=== PATIENT | female | born 1995 | race Caucasian/White ===

== ENCOUNTER 2017-01-12 10:28 | Emergency (ER) | payer OTHER ==
[2017-01-12 10:41] VITALS: BP 118/76
--- NOTE | 2017-01-12 11:15 | ED ---
Ferdinand De Los Santos Nilda, scribed for Yonas Peres MD on 01/12/17 at 1106 . Skin Complaint - HPI Summary HPI Summary: This patient is a 21 year old F presenting to [facility] with a chief complaint of a painful, erythematous, swollen abscess on left upper thigh that began this morning. She states it was not present yesterday. The patient rates the pain 9/ 10 in severity. Symptoms aggravated by palpation and ambulation and alleviated by rest. Patient reports she is otherwise healthy. She states she had a similar episode before (lanced). - History of Current Complaint Chief Complaint: EDRashSkinAbscess Stated Complaint: ABBCESS ON LEG LEG Hx Obtained From: Patient Hx Last Menstrual Period: 01/11/14 Onset/Duration: Started Hours Ago, Still Present Timing: Constant Current Severity: Severe Pain Intensity: 9 Pain Scale Used: 0-10 Numeric Skin Location: Leg - upper left thigh Character: Swelling, Redness, Painful Aggravating Symptom(s): Touch, Other: - ambulation Alleviating Symptom(s): Other: - rest - Allergy/Home Medications Allergies/Adverse Reactions: Allergies Allergy/AdvReac Type Severity Reaction Status Date / Time Clindamycin Allergy Intermediate Hives Verified 08/29/15 17:14 Penicillins Allergy Intermediate Hives Verified 08/29/15 17:14 Cephalexin [From Keflex] Allergy Shortness Verified 08/29/15 17:14 of Breath PMH/Surg Hx/FS Hx/Imm Hx Endocrine/Hematology History: Denies: Hx Diabetes Cardiovascular History: Denies: Hx Congestive Heart Failure, Hx Hypertension Respiratory History: Reports: Hx Asthma History: Denies: Hx Renal Disease Psychiatric History: Reports: Hx Depression Denies: Hx Eating Disorder, Hx of Violent Episodes Against Others Infectious Disease History: No Infectious Disease History: Denies: History Other Infectious Disease, Traveled Outside the [place] in Last 30 Days - Family History Known Family History: Positive: Hypertension - Social History Alcohol Use: None Substance Use Type: Reports: None Smoking Status (MU): Light Every Day Tobacco Smoker Type: Cigarettes Amount Used/How Often: 1 Have You Smoked in the Last Year: Yes Review of Systems Negative: Shortness Of Breath Positive: Other - painful, erythematous, swollen abscess on left upper thigh All Other Systems Reviewed And Are Negative: Yes Physical Exam Triage Information Reviewed: Yes Vital Signs On Initial Exam: Initial Vitals Temp Pulse Resp BP Pulse Ox 97.4 F 90 16 118/76 98 01/12/17 10:37 01/12/17 10:37 01/12/17 10:37 01/12/17 10:37 01/12/17 10:37 Vital Signs Reviewed: Yes Appearance: Positive: Obese Skin: Positive: Warm, Other - inner upper slightly posterior left thigh is with an early abscess, consistent with the one day symptoms according to the patient. There is 1 cm of induration, slight redness 2 cm in diameter, and no fluctuance. Head/Face: Positive: Normal Head/Face Inspection Eyes: Positive: EOMI ENT: Positive: Normal ENT inspection Respiratory/Lung Sounds: Positive: Clear to Auscultation, Breath Sounds Present Cardiovascular: Positive: RRR Abdomen Description: Negative: Distended Musculoskeletal: Positive: Strength/ROM Intact Neurological: Positive: Sensory/Motor Intact, Alert, Oriented to Person Place, Time, CN Intact II-III Diagnostics - Vital Signs Vital Signs Temp Pulse Resp BP Pulse Ox 01/12/17 10:37 97.4 F 90 16 118/76 98 - Laboratory Lab Statement: Any lab studies that have been ordered have been reviewed, and results considered in the medical decision making process. Course/Dx - Course Assessment/Plan: This patient is a 21 year old F presenting to [facility] with a chief complaint of a painful, erythematous, swollen abscess on left upper thigh that began this morning. She states it was not present yesterday. The patient rates the pain 9/10 in severity. Symptoms aggravated by palpation and ambulation and alleviated by rest. Patient reports she is otherwise healthy. She states she had a similar episode before (lanced). Pt is stable and will be D /C w prescription for Bactrim and Dx of early abscess. - Diagnoses Provider Diagnoses: Abscess Discharge - Discharge Plan Condition: Good Disposition: HOME Prescriptions: Sulfamethox/Trimethoprim DS* [Bactrim DS 800/160 TAB*] 1 tab PO BID #20 tab Patient Education Materials: Furunculosis and Carbunculosis (ED) Referrals: [facility] [facility] [Outside] No Primary Care Phys,NOPCP [Primary Care Provider] - Additional Instructions: RETURN TO THE EMERGENCY DEPARTMENT FOR CHANGING OR WORSENING SYMPTOMS The documentation as recorded by the Ferdinand piña Nilda accurately reflects the service I personally performed and the decisions made by , Yonas Peres MD.
== END 2017-01-12 11:16 | disposition home or self-care (01) ==
LOC: ED 10:28
DX: L02.416 Cutaneous abscess of left lower limb (principal)
CPT/HCPCS: 99281

== ENCOUNTER 2017-03-24 15:52 | Emergency (ER) | payer OTHER ==
--- NOTE | 2017-03-24 17:56 | RAD ---
Indication: Left ankle pain. 3 views left ankle demonstrate soft tissue swelling laterally. Ankle mortise is intact. No fracture is noted. IMPRESSION: Soft tissue swelling with no fracture.
--- NOTE | 2017-03-24 18:29 | ED ---
Lower Extremity - HPI Summary HPI Summary: The patient is a 21-year-old otherwise healthy female who presents to the ED with chief complaint of left ankle pain. She twisted it while at work. She denies any pain in the foot or the knee on the ipsilateral side. Denies numbness, tingling, color or temperature changes. There is slight swelling on the dorsum of the left foot. Pain is discretely located over the deltoid and lateral ligaments. She denies falling, hitting her head or loss of consciousness. Denies any other symptoms at this time. She is requesting a note for work. She is not iced the ankle but has taken 600 mg ibuprofen without relief of pain. Pain is rated 10, throbbing, worse with ambulation, better with rest. - History of Current Complaint Chief Complaint: EDExtremityLower Stated Complaint: LT FOOT PAIN Time Seen by Provider: 03/24/17 17:27 Hx Obtained From: Patient Hx Last Menstrual Period: 01/11/14 Onset of Pain: Minutes Onset/Duration: Minutes Severity Initially: Mild Severity Currently: Mild Pain Intensity: 6 Pain Scale Used: 0-10 Numeric Timing: Constant Location: Is Discrete @ - left lateral ankle Associated Signs And Symptoms: Positive: Swelling. Negative: Redness, Bruising , Weakness, Dizziness, Syncope Aggravating Factor(s): Standing, Ambulation Alleviating Factor(s): Rest Able to Bear Weight: No - Risk Factors Gout Risk Factors: Negative DVT Risk Factors: Negative Septic Arthritis Risk Factor: Negative - Allergies/Home Medications Allergies/Adverse Reactions: Allergies Allergy/AdvReac Type Severity Reaction Status Date / Time Clindamycin Allergy Intermediate Hives Verified 08/29/15 17:14 Penicillins Allergy Intermediate Hives Verified 08/29/15 17:14 Cephalexin [From Keflex] Allergy Shortness Verified 08/29/15 17:14 of Breath PMH/Surg Hx/FS Hx/Imm Hx Previously Healthy: Yes Endocrine/Hematology History: Denies: Hx Diabetes Cardiovascular History: Denies: Hx Congestive Heart Failure, Hx Hypertension Respiratory History: Reports: Hx Asthma History: Denies: Hx Renal Disease Psychiatric History: Reports: Hx Depression Denies: Hx Eating Disorder, Hx of Violent Episodes Against Others - Immunization History Hx Pertussis Vaccination: No Immunizations Up to Date: Yes Infectious Disease History: No Infectious Disease History: Denies: History Other Infectious Disease, Traveled Outside the [place] in Last 30 Days - Family History Known Family History: Positive: Unknown, Hypertension - Social History Occupation: Employed Part-time Lives: With Family Alcohol Use: None Substance Use Type: Reports: None Smoking Status (MU): Never Smoked Tobacco Type: Cigarettes Amount Used/How Often: 1 Have You Smoked in the Last Year: Yes Review of Systems Constitutional: Negative Negative: Fever, Chills, Fatigue Eyes: Negative ENT: Negative Respiratory: Negative Negative: Shortness Of Breath, Cough Negative: Abdominal Pain, Vomiting Positive: no symptoms reported, see HPI Positive: Arthralgia Skin: Negative All Other Systems Reviewed And Are Negative: Yes Physical Exam Triage Information Reviewed: Yes Vital Signs On Initial Exam: Initial Vitals Temp Pulse Resp BP Pulse Ox 97.8 F 81 16 124/72 99 03/24/17 16:06 03/24/17 16:06 03/24/17 16:06 03/24/17 16:06 03/24/17 16:06 Vital Signs Reviewed: Yes Appearance: Positive: Well-Appearing, Well-Nourished Skin: Positive: Warm, Skin Color Reflects Adequate Perfusion Head/Face: Positive: Normal Head/Face Inspection Eyes: Positive: EOMI, IZA, Conjunctiva Clear Neck: Positive: Supple, No Lymphadenopathy Respiratory/Lung Sounds: Positive: Clear to Auscultation, Breath Sounds Present Cardiovascular: Positive: RRR, Pulses are Symmetrical in both Upper and Lower Extremities Musculoskeletal: Positive: Pain @ - left lateral and deltoid ligament pain Neurological: Positive: Speech Normal Diagnostics - Vital Signs Vital Signs Temp Pulse Resp BP Pulse Ox 03/24/17 16:06 97.8 F 81 16 124/72 99 - Laboratory Lab Statement: Any lab studies that have been ordered have been reviewed, and results considered in the medical decision making process. Lower Extremity Course/Dx - Course Course Of Treatment: Based on Hiller Ankle Rules, patient sent to imaging. Xray negative for fracture or other acute findings. Medial and lateral distal lower extremity without pain and x-rays show no widening of the ankle joint regarding low suspicion for Maisonneuve fx. Ankle was wendy wrapped to patient comfort to allow for immobilization for this period of time. Crutches given. Patient given orthopedic follow up in 5-7 days. Encouraged Ibuprofen 600mg three times daily with meals for pain. Return precautions given. Educated patient regarding ankle injuries and healing time and the possibility of further evaluation and imaging as orthopedist sees fit. - Diagnoses Provider Diagnoses: Ankle sprain Discharge - Discharge Plan Condition: Stable Disposition: HOME Patient Education Materials: Ankle Sprain (ED) Forms: *Work Release Referrals: No Primary Care Phys,NOPCP [Primary Care Provider] - Additional Instructions: Rest Ibuprofen 600mg three times daily Ice Keep the area wrapped for 3 days
[2017-03-24 19:03] VITALS: BP 128/74
== END 2017-03-24 19:03 | disposition home or self-care (01) ==
LOC: ED 15:52
DX: S93.402A Sprain of unspecified ligament of left ankle, initial encounter (principal); X50.1XXA Overexertion from prolonged static or awkward postures, initial encounter; Y92.9 Unspecified place or not applicable; J45.909 Unspecified asthma, uncomplicated; F32.9 Major depressive disorder, single episode, unspecified
CPT/HCPCS: 99282

== ENCOUNTER 2017-04-05 15:19 | Emergency (ER) | payer OTHER ==
[2017-04-05 15:31] VITALS: BP 120/80
== END 2017-04-05 16:25 | disposition left against medical advice (07) ==
LOC: ED 15:19
DX: J11.1 Influenza due to unidentified influenza virus with other respiratory manifestations (principal); Z53.21 Procedure and treatment not carried out due to patient leaving prior to being seen by health care provider
CPT/HCPCS: 99281

== ENCOUNTER 2017-07-26 22:00 | Emergency (ER) | payer OTHER ==
[2017-07-26] MEDS ORDERED: oxyCODONE/Acetamin 5/325 MG* TAB PO ONE (23:45)
--- NOTE | 2017-07-26 23:52 | ED ---
Throat Pain/Nasal Congestion - HPI Summary HPI Summary: Pt here w/ gingival swelling, redness and pain along Lt upper jaw. She has had pain in multiple areas but this has been worse most recently. HAs had doxycycline in the past for her oral infections which she believes worked well. Denies fever, chills, difficulty breathing or swallowing. Pain worse w/ cool/ hot temps. Has dentist - [facility]. - History of Current Complaint Chief Complaint: EDDentalPain Time Seen by Provider: 07/26/17 23:28 Hx Obtained From: Patient - Allergies/Home Medications Allergies/Adverse Reactions: Allergies Allergy/AdvReac Type Severity Reaction Status Date / Time MS Clindamycin [Clindamycin] Allergy Intermediate Hives Verified 08/29/15 17:14 MS Penicillins [Penicillins] Allergy Intermediate Hives Verified 08/29/15 17:14 MS Cephalexin [From Keflex] Allergy Shortness Verified 08/29/15 17:14 of Breath PMH/Surg Hx/FS Hx/Imm Hx Endocrine/Hematology History: Denies: Hx Diabetes Cardiovascular History: Denies: Hx Congestive Heart Failure, Hx Hypertension Respiratory History: Reports: Hx Asthma History: Denies: Hx Renal Disease Psychiatric History: Reports: Hx Depression Denies: Hx Eating Disorder, Hx of Violent Episodes Against Others Infectious Disease History: No Infectious Disease History: Denies: History Other Infectious Disease, Traveled Outside the [place] in Last 30 Days - Family History Known Family History: Positive: Unknown, Hypertension - Social History Alcohol Use: None Substance Use Type: Reports: None Smoking Status (MU): Never Smoked Tobacco Type: Cigarettes Amount Used/How Often: 1 Have You Smoked in the Last Year: Yes Physical Exam Vital Signs On Initial Exam: Initial Vitals Temp Pulse Resp BP Pulse Ox 97.5 F 58 18 148/103 98 07/26/17 22:09 07/26/17 22:09 07/26/17 22:09 07/26/17 22:09 07/26/17 22:09 Diagnostics - Vital Signs Vital Signs Temp Pulse Resp BP Pulse Ox 07/26/17 22:09 97.5 F 58 18 148/103 98 - Laboratory Lab Statement: Any lab studies that have been ordered have been reviewed, and results considered in the medical decision making process. Discharge - Sign-Out/Discharge Documenting (check all that apply): Discharge/Admit/Transfer - Discharge Plan Condition: Stable Disposition: HOME Prescriptions: Acetaminop/Codeine 30 MG TAB* [Tylenol/Codeine 30 MG TAB*] 1 tab PO Q6H PRN #4 tab MDD 4 PRN Reason: Pain Chlorhexidine MOUTHWASH 0.12%* [Peridex Mouth Wash 0.12%*] 15 ml MT BID #1 btl DOXYcycline CAP(*) [DOXYcycline 100MG CAP(*)] 100 mg PO BID #20 cap Patient Education Materials: Adarsh Christo (ED) Forms: *Work Release Referrals: No Primary Care Phys,NOPCP [Primary Care Provider] - Additional Instructions: Continue ibuprofen 600mg every 6 hours with food for pain and inflammation Start salt water rinses along with antibiotic oral mouthrinse and pills - followup with dentist at [facility] - call tomorrow to schedule an appointment If pain is keeping you from sleeping, you may try topical oragel for pain as well as tylenol #3 *If you develop facial swelling, difficulty breathing or swallowing return to ED - Billing Disposition and Condition Condition: STABLE Disposition: HOME
[2017-07-26] MEDS ORDERED: Ketorolac INJ* 60 MG/2 ML VIAL IM ONE (23:53)
[2017-07-27 00:57] VITALS: BP 151/99
== END 2017-07-27 00:52 | disposition home or self-care (01) ==
LOC: ED 22:00
DX: R68.84 Jaw pain (principal); K06.1 Gingival enlargement; J45.909 Unspecified asthma, uncomplicated; F32.9 Major depressive disorder, single episode, unspecified; Z88.1 Allergy status to other antibiotic agents; Z88.0 Allergy status to penicillin
CPT/HCPCS: 96372; 99282; A9270-GY; J1885

== ENCOUNTER 2017-11-27 12:25 | Emergency (ER) | payer OTHER ==
--- NOTE | 2017-11-27 13:50 | ED ---
Throat Pain/Nasal Congestion - HPI Summary HPI Summary: Patient is a 22-year-old otherwise healthy female presenting to the ED with painful eye with conjunctival injection. She denies any blurry vision or double vision. She states she was at a wedding yesterday and was possibly around sick contacts. She denies any other symptoms at this time. She states she has had a viral cold recently, but this has improved. She has not taken any medications. She states she awoke with this pain and erythema this morning. - History of Current Complaint Chief Complaint: EDEyeProblem Time Seen by Provider: 11/27/17 12:40 Hx Obtained From: Patient Onset/Duration: Sudden Onset Severity: Moderate Associated Signs And Symptoms: Positive: Negative - Epiglottits Risk Factors Epiglottis Risk Factors: Negative - Allergies/Home Medications Allergies/Adverse Reactions: Allergies Allergy/AdvReac Type Severity Reaction Status Date / Time cephalexin Allergy Shortness Verified 11/27/17 12:30 of Breath clindamycin Allergy Hives Verified 11/27/17 12:30 Penicillins Allergy Hives Verified 11/27/17 12:30 Home Medications: Home Medications NK [No Home Medications Reported] 11/27/17 [History Confirmed 11/27/17] PMH/Surg Hx/FS Hx/Imm Hx Previously Healthy: Yes Endocrine/Hematology History: Denies: Hx Diabetes Cardiovascular History: Denies: Hx Congestive Heart Failure, Hx Hypertension Respiratory History: Reports: Hx Asthma History: Denies: Hx Renal Disease Psychiatric History: Reports: Hx Depression Denies: Hx Eating Disorder, Hx of Violent Episodes Against Others - Immunization History Hx Pertussis Vaccination: No Immunizations Up to Date: Yes Infectious Disease History: No Infectious Disease History: Denies: History Other Infectious Disease, Traveled Outside the [place] in Last 30 Days - Family History Known Family History: Positive: Unknown, Hypertension - Social History Occupation: Employed Full-time Lives: With Family Alcohol Use: None Hx Substance Use: No Substance Use Type: Reports: None Hx Tobacco Use: Yes Smoking Status (MU): Heavy Every Day Tobacco Smoker Type: Cigarettes Amount Used/How Often: 1 Have You Smoked in the Last Year: Yes Review of Systems Constitutional: Negative Negative: Fever, Chills, Fatigue, Skin Diaphoresis Positive: Drainage, Erythema. Negative: Photophobia, Blurred Vision, Diplopia Negative: Palpitations, Chest Pain Negative: Shortness Of Breath, Cough Negative: Arthralgia, Myalgia Skin: Negative Neurological: Negative All Other Systems Reviewed And Are Negative: Yes Physical Exam Triage Information Reviewed: Yes Vital Signs On Initial Exam: Initial Vitals Temp Pulse Resp BP Pulse Ox 97.3 F 92 16 136/89 97 11/27/17 12:27 11/27/17 12:27 11/27/17 12:27 11/27/17 12:27 11/27/17 12:27 Vital Signs Reviewed: Yes Appearance: Positive: Well-Appearing, Well-Nourished Skin: Positive: Warm, Skin Color Reflects Adequate Perfusion Head/Face: Positive: Normal Head/Face Inspection Eyes: Positive: EOMI, IZA, Conjunctiva Inflammed ENT: Positive: Pharynx normal Neck: Positive: Nontender, No Lymphadenopathy Cardiovascular: Positive: RRR, Pulses are Symmetrical in both Upper and Lower Extremities Musculoskeletal: Positive: Normal, Strength/ROM Intact Neurological: Positive: Speech Normal Psychiatric: Positive: Normal, Affect/Mood Appropriate Diagnostics - Vital Signs Vital Signs Temp Pulse Resp BP Pulse Ox 11/27/17 12:27 97.3 F 92 16 136/89 97 - Laboratory Lab Statement: Any lab studies that have been ordered have been reviewed, and results considered in the medical decision making process. EENT Course/Dx - Course Course Of Treatment: During the course treatment, the patient is evaluated for conjunctival injection of the right eye with pain and slight itchiness. She has never had this before. She denies any environmental allergies. She has had a recent viral illness which is since resolved. Endorses crusting around the eyelids since this a.m. Physical examination, there is conjunctival injection with slight crusting around the eyelids. Denies any visual changes, double vision or blurry vision. She is given polymyxin drops in the ED and is encouraged to use these every 3 hours while awake 5 days. - Differential Diagnoses Differential Diagnoses: Conjunctivitis, Corneal Abrasion - Diagnoses Provider Diagnoses: Bacterial conjunctivitis of right eye Discharge - Sign-Out/Discharge Documenting (check all that apply): Patient Departure - Discharge Plan Condition: Stable Disposition: HOME Patient Education Materials: Conjunctivitis (ED) Forms: *Work Release Referrals: No Primary Care Phys,NOPCP [Primary Care Provider] - Additional Instructions: Polymyxin drops every 3 hours while awake 5 days Wash hands frequently If he develop crusting over the eyelids, warm compresses R best, otherwise cold compresses - Billing Disposition and Condition Condition: STABLE Disposition: Home
[2017-11-27] MEDS ORDERED: Polymyx/Trimethoprim OPTH* 10 ML BTL RIGHT EYE SCH (14:00)
[2017-11-27 14:14] VITALS: BP 114/68
== END 2017-11-27 14:13 | disposition home or self-care (01) ==
LOC: ED 12:25
DX: H10.9 Unspecified conjunctivitis (principal)
CPT/HCPCS: 99282

== ENCOUNTER 2018-06-05 09:28 | Emergency (ER) | payer SELFPAY ==
[2018-06-05 09:36] VITALS: BP 132/69
--- NOTE | 2018-06-05 09:40 | ED ---
- HPI Summary HPI Summary: Patient is a 22-year-old female who presents emergency department for evaluation of possible and vaginal bleeding. Patient states she had implanon implant removed over the summer has not had a normal period since. Patient states she took 3 tests the last few weeks which were all positive. She states she noticed some vaginal bleeding yesterday that has continued to today. Patient states bleeding is light and is only with wiping. Patient denies other vaginal discharge or concerns for STIs. Patient has had 2 other pregnancies without complications and has 2 living children. Patient notes mild abdominal cramping. Symptoms are moderate in severity. No current modifying factors. - History of Current Complaint Chief Complaint: EDOBProblems Stated Complaint: CRAMPING, SPOTTING PER PT Time Seen by Provider: 06/05/18 09:38 Hx Obtained From: Patient Pain Intensity: 8 - Assessment SAB: 0 IEA: 0 - Additional Pertinent History Maternal Blood Type and Rh: O Positive - Allergies/Home Medications Allergies/Adverse Reactions: Allergies Allergy/AdvReac Type Severity Reaction Status Date / Time cephalexin Allergy Shortness Verified 06/05/18 09:36 of Breath clindamycin Allergy Hives Verified 06/05/18 09:36 Penicillins Allergy Hives Verified 06/05/18 09:36 PMH/Surg Hx/FS Hx/Imm Hx Previously Healthy: Yes Endocrine/Hematology History: Denies: Hx Diabetes Cardiovascular History: Denies: Hx Congestive Heart Failure, Hx Hypertension Respiratory History: Reports: Hx Asthma History: Denies: Hx Renal Disease Psychiatric History: Reports: Hx Depression Denies: Hx Eating Disorder, Hx of Violent Episodes Against Others Infectious Disease History: No Infectious Disease History: Denies: History Other Infectious Disease, Traveled Outside the [place] in Last 30 Days - Family History Known Family History: Positive: Unknown, Hypertension - Social History Occupation: Unemployed Lives: With Family Alcohol Use: None Hx Substance Use: No Substance Use Type: Reports: None Hx Tobacco Use: Yes Smoking Status (MU): Heavy Every Day Tobacco Smoker Type: Cigarettes Amount Used/How Often: 1 Have You Smoked in the Last Year: Yes Review of Systems Constitutional: Negative Negative: Fever, Chills Cardiovascular: Negative Respiratory: Negative Positive: Abdominal Pain, Nausea. Negative: Vomiting, Diarrhea Positive: other - vaginal spotting. Negative: discharge, frequency, flank pain , hematuria Neurological: Negative All Other Systems Reviewed And Are Negative: Yes Physical Exam - Physical Exam Triage Information Reviewed: Yes Vital Signs Reviewed: Yes Appearance: Positive: Well-Appearing - Pt. sitting up in bed in NAD. Mother present. Skin: Positive: Warm, Dry Head/Face: Positive: Normal Head/Face Inspection Eyes: Positive: Normal, EOMI Neck: Positive: Supple Respiratory/Lung Sounds: Positive: Clear to Auscultation, Breath Sounds Present Cardiovascular: Positive: Normal, RRR Abdomen Description: Positive: Other: - Obese. Abd. is soft and nontender throughout. Neurological: Positive: Normal, CN Intact II-III Psychiatric: Positive: Affect/Mood Appropriate Diagnostics - Vital Signs Vital Signs Temp Pulse Resp BP Pulse Ox 06/05/18 09:32 97.8 F 75 16 132/69 98 - Laboratory Result Diagrams: 06/05/18 09:59 Lab Statement: Any lab studies that have been ordered have been reviewed, and results considered in the medical decision making process. Course/Dx - Course Course Of Treatment: Pt. presenting with c/o pelvic cramping and vaginal spotting. Afebrile. Benign abd. exam. Pt. has not yet had u/s. Labs shows normal CBC. Beta quant elevated at 37,684. U/S ordered to evaluate for IUP. U/A negative. Blood type O+. 1220: U/S complete and waiting for radiology reading. Pt.'s nurse informed me pt. was given an u/s photo by [employer] and was walking down hallway to leave ER. Pt. 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 Nurse had pt. sign AMA form. I was unable to talk to pt. before she left to discuss with pt. risk of leaving ER before u/s result was officially read. Pelvic u/s per radiology: IMPRESSION : 1. Single live intrauterine gestation with a crown-rump length yielding a gestational age. of 6 weeks 1 day. 2. Trace subchorionic fluid that could be seen in a small subchorionic hemorrhage. - Differential Diagnosis/HQI/PQRI: Incomplete , Missed , Spontaneous , Ectopic , Early - Diagnoses Provider Diagnoses: First trimester , Threatened Discharge - Sign-Out/Discharge Documenting (check all that apply): Patient Departure Patient Received Moderate/Deep Sedation with Procedure: No - Discharge Plan Condition: Stable Disposition: AGAINST MEDICAL ADVICE Referrals: No Primary Care Phys,NOPCP [Primary Care Provider] - - Billing Disposition and Condition Condition: STABLE Disposition: Against Medical Advice
[2018-06-05 10:09] LABS: ABS Basophils 0.1 10^3/ul (0-0.2); ABS Eosinophils 0.1 10^3/ul (0-0.6); ABS Lymphocytes 1.7 10^3/ul (1.0-4.8); ABS Monocytes 0.7 10^3/ul (0-0.8); ABS Neutrophils 4.8 10^3/ul (1.5-7.7); ABS Nucleated RBC 0 10^3/ul; Eosinophil % 0.7 %; Hematocrit 40 % (33-41); Hemoglobin 13.5 g/dL (12.0-16.0); Lymphocyte % 23.4 %; Mean Corpuscular HGB Conc 34 g/dL (31-36); Mean Corpuscular Hemoglobin 29 pg (27-31); Mean Corpuscular Volume 85 fL (80-97); Mean Platelet Volume 9.6 fL (7.4-10.4); Nucleated Red Blood Cells % 0.1; Platelet Count 246 10^3/uL (150-450); Red Blood Count 4.68 10^6 /uL (3.70-4.87); Red Cell Distribution Width 14 % (10.5-15); White Blood Count 7.3 10^3/uL (3.5-10.8)
[2018-06-05 10:18] LABS: Urine Appearance Cloudy; Urine Bacteria Absent (Absent); Urine Bilirubin Negative (Negative); Urine Blood Negative (Negative); Urine Color Yellow; Urine Glucose Negative (Negative); Urine Ketones Negative (Negative); Urine Nitrite Negative (Negative); Urine Protein Negative (Negative); Urine Red Blood Cell Absent (Absent); Urine Specific Gravity 1.018 (1.010-1.030); Urine Squamous Epithelial Cell Present (Absent); Urine Urobilinogen Negative (Negative); Urine White Blood Cell 1+(6-10/hpf) (Absent)
== END 2018-06-05 12:22 | disposition left against medical advice (07) ==
LOC: ED 09:28
DX: O20.0 Threatened abortion (principal); O99.330 Smoking (tobacco) complicating pregnancy, unspecified trimester; Z3A.01 Less than 8 weeks gestation of pregnancy; J45.909 Unspecified asthma, uncomplicated; F32.9 Major depressive disorder, single episode, unspecified; F17.210 Nicotine dependence, cigarettes, uncomplicated; Z53.21 Procedure and treatment not carried out due to patient leaving prior to being seen by health care provider
CPT/HCPCS: 36415; 76817; 81003; 81015; 84702; 85025; 86900; 86901; 87086; 99282

== ENCOUNTER 2018-08-29 18:58 | Emergency (ER) | payer OTHER ==
--- NOTE | 2018-08-29 19:58 | ED ---
- HPI Summary HPI Summary: This patient is a 23 year old female presenting to [facility] with a chief complaint of injuries after a fall 3 hours ago. The patient fell on her abdomen from a standing position while walking. She is 18 weeks and states she has not felt the baby move since the fall. She complains of pain in her left big toe and abdominal cramping. She rates her pain 10/10 in severity. - History of Current Complaint Chief Complaint: EDFall Stated Complaint: 5 MONTHS PREG/FALL CRAMPING PER MOTHER Time Seen by Provider: 08/29/18 19:51 Hx Obtained From: Patient Chief Complaint: Concern for Demise Pain Intensity: 10 Character: Cramping - Assessment SAB: 0 IEA: 0 - Additional Pertinent History Maternal Blood Type and Rh: O Positive - Allergies/Home Medications Allergies/Adverse Reactions: Allergies Allergy/AdvReac Type Severity Reaction Status Date / Time cephalexin Allergy Shortness Verified 08/29/18 19:05 of Breath clindamycin Allergy Hives Verified 08/29/18 19:05 Penicillins Allergy Hives Verified 08/29/18 19:05 PMH/Surg Hx/FS Hx/Imm Hx Endocrine/Hematology History: Denies: Hx Diabetes Cardiovascular History: Denies: Hx Congestive Heart Failure, Hx Hypertension Respiratory History: Reports: Hx Asthma History: Denies: Hx Renal Disease Psychiatric History: Reports: Hx Depression Denies: Hx Eating Disorder, Hx of Violent Episodes Against Others - Immunization History Date of Tetanus Vaccine: utd Date of Influenza Vaccine: none Infectious Disease History: No Infectious Disease History: Denies: History Other Infectious Disease, Traveled Outside the [place] in Last 30 Days - Family History Known Family History: Positive: Hypertension - Social History Alcohol Use: None Hx Substance Use: No Substance Use Type: Reports: None Hx Tobacco Use: Yes Smoking Status (MU): Heavy Every Day Tobacco Smoker Type: Cigarettes Amount Used/How Often: 1 Have You Smoked in the Last Year: Yes Review of Systems Positive: Abdominal Pain Positive: Other - Toe pain All Other Systems Reviewed And Are Negative: Yes Physical Exam - Summary Physical Exam Summary: VITAL SIGNS: Reviewed. GENERAL: Patient is a well-developed and nourished FEMALE who is lying comfortable in the stretcher. Patient is not in any acute respiratory distress. HEAD AND FACE: No signs of trauma. No ecchymosis, hematomas or skull depressions. No sinus tenderness. EYES: PERRLA, EOMI x 2, No injected conjunctiva, no nystagmus. EARS: Hearing grossly intact. Ear canals and tympanic membranes are within normal limits. MOUTH: Oropharynx within normal limits. NECK: Supple, trachea is midline, no adenopathy, no JVD, no carotid bruit, no c- spine tenderness, neck with full ROM CHEST: Symmetric, no tenderness at palpation LUNGS: Clear to auscultation bilaterally. No wheezing or crackles. CVS: Regular rate and rhythm, S1 and S2 present, no murmurs or gallops appreciated. ABDOMEN: Soft, non-tender. No signs of distention. No rebound no guarding, and no masses palpated. Bowel sounds are normal. Could not feel uterus due to patient obesity. EXTREMITIES: FROM in all major joints, no edema, no cyanosis or clubbing. NEURO: Alert and oriented x 3. No acute neurological deficits. Speech is normal and follows commands. SKIN: Dry and warm - Physical Exam Triage Information Reviewed: Yes Vital Signs On Initial Exam: Temp Pulse Resp BP Pulse Ox 97.9 F 96 16 137/85 98 08/29/18 19:00 08/29/18 19:00 08/29/18 19:00 08/29/18 19:00 08/29/18 19:00 Vital Signs Reviewed: Yes Diagnostics - Vital Signs Vital Signs Temp Pulse Resp BP Pulse Ox 08/29/18 19:00 97.9 F 96 16 137/85 98 - Laboratory Result Diagrams: 08/29/18 20:04 08/29/18 20:04 Lab Statement: Any lab studies that have been ordered have been reviewed, and results considered in the medical decision making process. - Ultrasound No standard instances Ultrasound Interpretation Completed By: Radiologist Summary of Ultrasound Findings: US: Normal intrauterine with estimated gestational age of 19 weeks and 0 days. ED Provider has reviewed this report. Course/Dx - Course Course Of Treatment: This patient is a 23 year old female presenting to [facility] with a chief complaint of injuries after a fall 3 hours ago with concerns over her . US revealed normal intrauterine with estimated gestational age of 19 weeks and 0 days. A plan for discharge was discussed with the patient and she was agreeable with this plan. - Diagnoses Provider Diagnoses: Fall Discharge - Sign-Out/Discharge Documenting (check all that apply): Patient Departure - Discharge Patient Received Moderate/Deep Sedation with Procedure: No - Discharge Plan Condition: Stable Disposition: HOME Patient Education Materials: Fall Prevention (ED) Referrals: [facility] [Provider Group] Additional Instructions: Return to ED with any new or worsening symptoms. - Attestation Statements Document Initiated by Scribe: Yes Documenting Scribe: Eris Viveros Provider For Whom Scribe is Documenting (Include Credential): Perlita Jackson MD Scribe Attestation: IEris, scribed for Perlita Jackson MD on 08/29/18 at 2142. Status of Scribe Document: Ready
[2018-08-29 20:12] LABS: ABS Basophils 0.1 10^3/ul (0-0.2); ABS Lymphocytes 1.7 10^3/ul (1.0-4.8); ABS Monocytes 0.7 10^3/ul (0-0.8); Eosinophil % 0.2 %; Hematocrit 33 % (35-47); Hemoglobin 11.9 g/dL (12.0-16.0); Lymphocyte % 14.7 %; Mean Corpuscular HGB Conc 36 g/dL (31-36); Mean Corpuscular Hemoglobin 30 pg (27-31); Mean Corpuscular Volume 84 fL (80-97); Platelet Count 242 10^3/uL (150-450); Red Blood Count 3.99 10^6 /uL (3.70-4.87); Red Cell Distribution Width 13 % (10-15); White Blood Count 11.4 10^3/uL (3.5-10.8)
[2018-08-29 20:32] LABS: Albumin 3.6 g/dL (3.2-5.2); Albumin/Globulin Ratio 1.1 (1-3); BUN/Creatinine Ratio 12.7 (8-20); Calcium 9.5 mg/dL (8.6-10.3); EGFR African American 121.4 (>60); EGFR Non-African American 100.3 (>60); Globulin 3.3 g/dL (2-4); Potassium 3.4 mmol/L (3.5-5.0); Total Bilirubin 0.2 mg/dL (0.2-1.0); Total Protein 6.9 g/dL (6.4-8.9)
[2018-08-29] MEDS ORDERED: Potassium Chlor TAB* 20 MEQ TAB.ER PO ONE (20:47)
[2018-08-29] MEDS ORDERED: Acetaminophen TAB* 325 MG PO ONE (20:50)
[2018-08-29 22:43] VITALS: BP 137/78
== END 2018-08-29 22:42 | disposition home or self-care (01) ==
LOC: ED 18:58
DX: Z04.3 Encounter for examination and observation following other accident (principal); W18.30XA Fall on same level, unspecified, initial encounter; O99.332 Smoking (tobacco) complicating pregnancy, second trimester; F17.210 Nicotine dependence, cigarettes, uncomplicated; Z3A.19 19 weeks gestation of pregnancy; Z88.1 Allergy status to other antibiotic agents; Z88.0 Allergy status to penicillin
CPT/HCPCS: 36415; 76815; 80053; 84702; 85025; 86850; 86900; 86901; 99282; A9270-GY

== ENCOUNTER 2019-02-02 14:43 | Inpatient (IN) | payer OTHER ==
[2019-02-02] MEDS ORDERED: Lactated Ringers 1000 ML Bag* 1,000 ML IV ONE (16:15)
[2019-02-02] MEDS ORDERED: Buffered Lidocaine 1% SYRIN* 1 ML/SYRINGE INTRADERM ONE (16:15)
[2019-02-02] MEDS ORDERED: Lactated Ringers 1000 ML Bag* 1,000 ML IV SCH (17:00)
[2019-02-02] MEDS ORDERED: Oxytocin in LR* 20 UNITS/1,000 ML BAG IVPB SCH (17:00)
[2019-02-02 17:09] LABS: ABS Eosinophils 0.1 10^3/ul (0-0.6); ABS Lymphocytes 1.7 10^3/ul (1.0-4.8); ABS Monocytes 1.1 10^3/ul (0-0.8); ABS Neutrophils 9.4 10^3/ul (1.5-7.7); Eosinophil % 0.9 %; Hematocrit 34 % (35-47); Hemoglobin 11.8 g/dL (12.0-16.0); Mean Corpuscular HGB Conc 35 g/dL (31-36); Mean Corpuscular Hemoglobin 29 pg (27-31); Mean Corpuscular Volume 84 fL (80-97); Mean Platelet Volume 9.6 fL (7.4-10.4); Platelet Count 244 10^3/uL (150-450); Red Blood Count 4.05 10^6 /uL (3.70-4.87); Red Cell Distribution Width 14 % (10-15); White Blood Count 12.4 10^3/uL (3.5-10.8)
[2019-02-02 18:06] LABS: Urine Benzodiazepine Screen None Detected (None Detect); Urine Opiates Screen None Detected (None Detect)
--- NOTE | 2019-02-02 18:20 | HP ---
General Information - Reason for Visit Scheduled IOL for postdates - General Information Maternal Age: 23 Grav: 3 Para: 2 SAB: 0 IEA: 0 Estimated Due Date: 01/26/19 Determined By: Early Ultrasound Gestational Age in Weeks/Days: 41 0/7 Maternal Blood Type and Rh: O Positive - Results this Serology/RPR Result: Non-Reactive Rubella Result: Immune HBsAg Result: Negative HIV Result: Negative GBS Culture Result: Positive Past Medical History Delivery History: Hx Uncomplicated Vaginal Delivery Pertinent Past Medical History: See Records - asthma, depression Pertinent Past Surgical History: None Pertinent Family History: See Records - DM, HTN, depression - Antepartal Records Antepartal Records: Reviewed, Complicated by: - tobacco use, obesity, GBS positive Review of Systems Constitutional: Comfortable CV Complaint: No Respiratory: Shortness of Breath: No Gastrointestinal: No Nausea/Vomiting, Normal Bowel Movement Genitourinary: No Dysuria, No Bleeding, No Leaking Fluid Musculoskeletal: No Epigastric Pain, Back Pain, Contractions Neurological: No Headache, No Visual Changes Movement: Normal Exam Allergies/Adverse Reactions: Allergies cephalexin Allergy (Mild, Verified 12/24/18 21:52) Hives pt denied SOB reaction azithromycin [From Zithromax] Allergy (Verified 12/24/18 21:52) Hives clindamycin Allergy (Verified 12/24/18 21:52) Hives Penicillins Allergy (Verified 12/24/18 21:52) Hives T-98.6, P-96, R-20, BP-124/75 Lab Values - Entire Visit: Laboratory Tests 02/02/19 02/02/19 02/02/19 16:50 16:50 16:50 WBC 12.4 H RBC 4.05 Hgb 11.8 L Hct 34 L MCV 84 MCH 29 MCHC 35 RDW 14 Plt Count 244 MPV 9.6 Neut % (Auto) 75.7 Lymph % (Auto) 14.0 Rogers % (Auto) 9.0 Eos % (Auto) 0.9 Baso % (Auto) 0.4 Absolute Neuts (auto) 9.4 H Absolute Lymphs (auto) 1.7 Absolute Monos (auto) 1.1 H Absolute Eos (auto) 0.1 Absolute Basos (auto) 0.0 Absolute Nucleated RBC 0.0 Nucleated RBC % 0.0 Urine Opiates Screen None detected Ur Barbiturates Screen None detected Ur Phencyclidine Scrn None detected Ur Amphetamines Screen None detected U Benzodiazepines Scrn None detected Urine Cocaine Screen None detected U Cannabinoids Screen None detected Blood Type O Positive Antibody Screen Negative - Measurements Height: 5 ft 6 in Weight: 112.491 kg Weight in lbs: 248.897203 Body Mass Index (BMI): 40.0 Pre- Weight: 104.326 kg Weight Gained This : 18 lbs and 0 ozs - Exam Breast: Breast Exam Deferred CVA: No CVA Tenderness Extremities: Edema - bilateral pedal Heart: Normal Rhythm/Heart Sounds HEENT: No Significant Findings Lungs: Clear Bilaterally Rectal: Rectal Exam Deferred Reflexes: DTR 2+ Thyroid: No Thyromegaly - Abdominal Exam Abdomen Exam: Non-Tender, Fundal Height Consistent with Dates - Ultrasound/Biophysical Profile Ultrasound Status: Not Done Targeted Exam Findings See L&D Outpatient Visit Provider Note for Findings: N/A Estimated Weight: 8# Cervical Exam: 1cm Effacement: 50% Station: High Presenting Part: Vertex Membrane Status: Intact Bleeding/Discharge: None EFM Findings - External Monitor Findings Baseline Heart Rate: 140 External Monitor Findings: Accelerations Present, No Pattern of Variable or Late Decelerations, Variability Moderate, Baseline Stable Contractions: Irregular, Mild Contraction Frequency: 3-6 minutes Assessment/Plan - Assessment 23 year old at 41 0/7 weeks gestation here for IOL. No evidence of acidemia or chorioamnionitis. - Obstetrical Risk Factors Obstetrical Risk Factors: GBS Positive, Post-Dates, Obesity, Tobacco Use - Plan Plan: Induction, Admit - Anticipate Vaginal Delivery Plan Comment: Discussed options with pt including oxytocin vs cervical ripening. Pt elected to try oxytocin with Cook catheter. However, after Cook Catheter placed pt unable to tolerate, so trying Pitocin alone at this point. - Date/Time of Admission Date of Admission: 02/02/19 Time of Admission: 16:17
[2019-02-02] MEDS ORDERED: Nicotine PATCH 7 MG/24 HR* PATCH TRANSDERM SCH (19:00)
--- NOTE | 2019-02-03 01:47 | PN ---
Progress Note - Progress Note Date of Service: 02/03/19 SOAP: Subjective: Pt reports increased sensation with ctx, coping well, family at bedside. Objective: Cervix: 2cm/ 100%/ 0 station FHR:Baseline 120/ moderate variability/ + accels/ no decels UCs: 1-2 minutes BP: 123/68 Assessment: Pt appears to be making progress with the Pitocin. No evidence of acidemia or chorioamnionitis. Plan: Continue Pitocin augmentation. AROM when able.
--- NOTE | 2019-02-03 02:36 | PN ---
Progress Note - Progress Note Date of Service: 02/03/19 SOAP: Subjective: Pt reports ctx more uncomfortable. Coping well. Family at bedside. Objective: Cervix: 2-3 cm/ 80%/ 0 station/ vtx AROM to clear fluid FHR: 150 baseline, + accels/ no decels UCs: 2-3 minutes Pitocin at 10 mu/min Assessment: Pt making slow change, still in early labor. No evidence of acidemia. Plan: AROM performed to clear fluid. Continue Pitocin induction. Anticipate progression to complete dilation and .
[2019-02-03] MEDS ORDERED: Vancomycin(*) 2,000 MG in NS 0.9% 500 ML* 500 ML IVPB ONE (03:50)
[2019-02-03] MEDS ORDERED: Promethazine INJ(RESTRICTED)* 25 MG/ML 1 ML VIAL IV ONE (04:14)
[2019-02-03] MEDS ORDERED: Nalbuphine* 10 MG/ML 1 ML VIAL IV ONE (04:15)
--- NOTE | 2019-02-03 04:39 | PN ---
Progress Note - Progress Note Date of Service: 02/03/19 SOAP: Subjective: [] Objective: [] Assessment: [] Plan: []
--- NOTE | 2019-02-03 06:04 | PN ---
Progress Note - Progress Note Date of Service: 02/03/19 SOAP: Subjective: Pt requested IV pain medication. Following administration of Nubain and Phenergan pt now resting comfortably. Objective: FHR: Baseline 125/ moderate variability/ no accels/ no decels UCs: 1-5 (coupling) Cervix: 3 cm/ 100%/ 0 station Clear fluid following AROM at 0224 Assessment: Pt comfortable following Nubain and phenergan administration. No evidence of acidemia or chorioamnionitis. Plan: Continue Pitocin augmentation. IV pain meds or epidural for pain relief. There was a period of several minutes where baby was unable to be traced. At that time , advised pt that I recommend IUPC. Pt refused rto have it placed. At this time FHR is tracing well but if we are unable to obtain adequate tracing to ensure safety of infant pt advised that I will again strongly recommend IUPC placement. Anticipate progression to full dilation and .
--- NOTE | 2019-02-03 09:05 | PN ---
Progress Note - Progress Note Date of Service: 02/03/19 Note: Subjective: Pt is still very sleepy following administration of Nubain and Phenergan. Able to walk to the bathroom. Feeling some pressure, requesting VE. Objective: FHR: Baseline 125/ moderate variability/ no accels/ early decels UCs: 2-3 (coupling) Cervix: 5-6cm/ 100%/ 0 station Clear fluid following AROM at 0224 Assessment: IUP@41+1 Pt in active labor Making cervical change Regular contractions Plan: Continue Pitocin augmentation. Titrate as tolerated Anticipate progression to full dilation and
[2019-02-03] MEDS ORDERED: Witch Hazel PAD* JAR TOPICAL PRN (11:09)
[2019-02-03] MEDS ORDERED: Dibucaine 1% 28.35 GM TUBE PR PRN (11:09)
[2019-02-03] MEDS ORDERED: Acetaminophen TAB* 325 MG PO PRN (11:09)
[2019-02-03] MEDS ORDERED: Glycerin ADULT SUPP PR PRN (11:09)
--- NOTE | 2019-02-03 11:12 | PROCNOTE ---
[facility] OB: Delivery Note - Delivery A Date of : 02/03/19 Time of : 10:49 [place] Sex: Female Weight at : 6 lb 9 oz Score 1 Minute: 9 Score 5 Minutes: 9 Gestational Age in Weeks and Days at Delivery: 41 Weeks and 1 Days Delivery Method: Spontaneous Vaginal Labor: Spontaneous Did Patient attempt ?: N/A, No Previous Amniotic Fluid: Clear Estimated Blood Loss: 400 Anesthesia/Analgesia: Nitrous-Labor Delivered By: Cinthia Mcgovern Nursery Level of Nursery: Regular/Bedside - Perineum Perineal Injury: Abrasion Only - Not Repaired - Events Delivery Events of Note: Pitocin During Labor, Full Course of Antibiotics - Additional Delivery Notes Additional Delivery Notes: Pt was an IOL for postdates. Eventually she requested and received Nubian and phenergan for pain relief. Vancomycin was given for GBS prophylaxis. She progressed to complete and complete. Spontaneous vaginal delivery of liveborn female infant over an small perineal abrasion. was placed on mother's chest. pink, HR >100, with spontaneous cry. Cord clamped and cut by FOB after pulsations ceased (approximately 5 minutes). Spontaneous delivery of the placenta followed via inna. Appears intact, 3vc. Pitocin started at 330 mL/ hr. Examination of the perineum revealed a small perineal abrasion, hemostatic, not repaired. Fundus firm, EBL 400mL. Planning to breast and formula feed. Baby and mom in good condition at time of note. -AM
[2019-02-03] MEDS: Ibuprofen TAB* 600 MG PO SCH ×2 (11:38→18:02)
[2019-02-03] MEDS ORDERED: Oxytocin in LR* 20 UNITS/1,000 ML BAG IVPB SCH (12:00)
[2019-02-03] MEDS ORDERED: Lactated Ringers 1000 ML Bag* 1,000 ML IV SCH (12:00)
[2019-02-03] MEDS ORDERED: Simethicone TAB* 80 MG TAB.CHEW PO SCH (12:30)
[2019-02-03] MEDS ORDERED: Vancomycin(*) 1,000 MG in NS 0.9% 250 ML* 250 ML IVPB SCH (16:00)
[2019-02-03] MEDS: Docusate CAP* 100 MG PO SCH ×2 (18:02→21:06)
[2019-02-04] MEDS: Ibuprofen TAB* 600 MG PO SCH ×2 (04:18→10:14)
[2019-02-04] MEDS ORDERED: Ferrous Gluconate TAB* 324 MG TAB PO SCH (09:00)
[2019-02-04 09:24] LABS: ABS Basophils 0.1 10^3/ul (0-0.2); ABS Eosinophils 0.1 10^3/ul (0-0.6); ABS Lymphocytes 2.3 10^3/ul (1.0-4.8); ABS Monocytes 0.7 10^3/ul (0-0.8); ABS Neutrophils 8.4 10^3/ul (1.5-7.7); Eosinophil % 0.6 %; Hematocrit 30 % (35-47); Hemoglobin 10.3 g/dL (12.0-16.0); Lymphocyte % 20.2 %; Mean Corpuscular HGB Conc 34 g/dL (31-36); Mean Corpuscular Hemoglobin 29 pg (27-31); Mean Corpuscular Volume 85 fL (80-97); Mean Platelet Volume 9.5 fL (7.4-10.4); Platelet Count 207 10^3/uL (150-450); Red Blood Count 3.56 10^6 /uL (3.70-4.87); Red Cell Distribution Width 14 % (10-15); White Blood Count 11.6 10^3/uL (3.5-10.8)
[2019-02-04 09:30] VITALS: BP 125/65
[2019-02-04] MEDS: Docusate CAP* 100 MG PO SCH ×2 (10:14→13:31)
== END 2019-02-04 15:45 | disposition home or self-care (01) | DRG 560 ==
LOC: MCHOBOUT 14:43 → MCHOB 16:17
PROVIDERS: ADMIT Midwife; ATTEND Advanced Practice Midwife
PROC: 10E0XZZ Delivery of Products of Conception, External Approach (ICD-10-PCS; principal; 2019-02-03)
PROC: 3E033VJ Introduction of Other Hormone into Peripheral Vein, Percutaneous Approach (ICD-10-PCS; 2019-02-03)
PROC: 10907ZC Drainage of Amniotic Fluid, Therapeutic from Products of Conception, Via Natural or Artificial Opening (ICD-10-PCS; 2019-02-03)
DX: O48.0 Post-term pregnancy (principal); Z37.0 Single live birth; O99.824 Streptococcus B carrier state complicating childbirth; O99.334 Smoking (tobacco) complicating childbirth; O99.214 Obesity complicating childbirth; O99.52 Diseases of the respiratory system complicating childbirth; J45.909 Unspecified asthma, uncomplicated; O99.344 Other mental disorders complicating childbirth; F32.9 Major depressive disorder, single episode, unspecified; O70.0 First degree perineal laceration during delivery; Z3A.41 41 weeks gestation of pregnancy
CPT/HCPCS: 36415; 80307; 85025; 86850; 86900; 86901; A9270-GY; J2300; J2550; J3370